=== PATIENT | female | born 1990 | race Two or more races ===

== ENCOUNTER → 2024-09-26 | Outpatient (REF) | payer OTHER ==
[~2024-09-26] MED LIST: LEVO100T5 PO; MULTTAB20 PO; UNIT1TAB PO
== END ==
LOC: M SFHCWAGY 14:51
PROVIDERS: ATTEND Specialist
DX: Z34.83 Encounter for supervision of other normal pregnancy, third trimester (principal)

== ENCOUNTER → 2024-10-01 | Outpatient (CLI) | payer OTHER ==
[2024-10-01 17:30] LABS: PLATELET COUNT, AUTOMATED 268 10^3/uL (150-450)
[2024-10-01 17:57] LABS: TOTAL PROTEIN,RANDOM URINE 12.2 MG/DL (0.0-14.0)
[2024-10-01 18:01] LABS: LDH LACTATE DEHYDROGENASE 171 U/L (120-246)
[2024-10-01 18:02] LABS: ALT/SGPT 14 U/L (7.0-40); AST/SGOT 19 U/L (<34); CREATININE FOR GFR 0.70 MG/DL (0.55-1.30); GLOMERULAR FILTRATION RATE > 90.0 (>60)
== END ==
LOC: M PLALAB 14:37
PROVIDERS: ATTEND Advanced Practice Midwife
DX: O16.3 Unspecified maternal hypertension, third trimester (principal)

== ENCOUNTER → 2024-10-05 | Outpatient (CLI) | payer OTHER | LOC: M WHC 10:25 | PROVIDERS: ATTEND Obstetrics & Gynecology | DX: Z36.2 Encounter for other antenatal screening follow-up (principal); Z87.59 Personal history of other complications of pregnancy, childbirth and the puerperium ==

== ENCOUNTER 2024-10-15 07:14 | Inpatient (IN) | payer OTHER ==
[~2024-10-15] VITALS: Ht 162.6 cm; Wt 94.4 kg
[2024-10-15] VITALS (8 sets, daily range): BP systolic 106–128; BP diastolic 57–75; TEMP 97.7; O2SAT 95–98
[2024-10-15] MEDS ORDERED: ACETAMINOPHEN 1000MG/100ML IV BAG As Ordered ONE (07:36)
[2024-10-15] MEDS ORDERED: MORPHINE PRES-FREE INJ 10 MG/10 ML VIAL As Ordered ONE (07:36)
[2024-10-15] MEDS ORDERED: dexAMETHasone 4 MG/ML 1 ML VIAL As Ordered ONE (07:36)
[2024-10-15] MEDS ORDERED: OXYTOCIN 30UNITS IN 0.9% NaCl 500ML IV BAG As Ordered ONE (07:36)
[2024-10-15] MEDS ORDERED: KETOROLAC 30 MG/ML 1 ML VIAL As Ordered ONE (07:36)
[2024-10-15] MEDS ORDERED: ONDANSETRON 4MG 2ML VIAL As Ordered ONE (07:36)
[2024-10-15] MEDS ORDERED: ACET-907 PO (07:39)
[2024-10-15 08:23] LABS: PLATELET COUNT, AUTOMATED 252 10^3/uL (150-450)
[2024-10-15] MEDS: BICITRA 30 ML SOLN UDC PO ONE (08:53)
[2024-10-15] MEDS: ceFAZolin SODIUM 2 GM in DEXTROSE 5% (D5W) ADV/MINI-BAG 50 ML IV ONE (08:53)
[2024-10-15] MEDS: LACTATED RINGER'S 1000 ML IV STA (08:53)
[2024-10-15] MEDS: LR 1,000 ML IV SCH ×2 (08:53→10:45)
[2024-10-15 09:17] LABS: HIV 1&2 SCREEN NEGATIVE (NEGATIVE)
[2024-10-15 09:25] LABS: HEPATITIS C VIRUS ABY INDEX < 0.02 INDEX (<0.8)
[2024-10-15] MEDS ORDERED: GLYCOPYRROLATE INJ 0.2 MG/ML 2 ML VIAL As Ordered ONE (09:56)
[2024-10-15] MEDS ORDERED: PHENYLephrine 500MCG 5ML (100MCG/ML) SYRINGE As Ordered ONE (10:15)
[2024-10-15] MEDS ORDERED: OXYTOCIN INJ 10UNITS/ML 1ML VIAL As Ordered ONE (10:34)
[2024-10-15] MEDS ORDERED: MORPHINE 4 MG/ML 1 ML VIAL IV PRN (10:45)
[2024-10-15] MEDS ORDERED: ONDANSETRON 4MG 2ML VIAL IV PRN ×2 (10:45→11:20)
[2024-10-15] MEDS ORDERED: PERCOCET 5MG/325MG TAB PO PRN ×2 (10:45)
[2024-10-15] MEDS ORDERED: METHYLERGONOVINE MALEATE 0.2 MG/ML 1 ML VIAL IM PRN (10:45)
[2024-10-15] MEDS ORDERED: CALCIUM CARBONATE 500 MG CHEW U/D PO PRN (10:45)
[2024-10-15] MEDS ORDERED: ANUSOL HC CREAM 30 GM TOP PRN (10:45)
[2024-10-15] MEDS ORDERED: RHOGAM 300MCG (1500IU) INJ IM SCH (10:45)
[2024-10-15] MEDS ORDERED: IBUP80TA PO (10:51)
[2024-10-15] MEDS ORDERED: PERCOCET PO (10:51)
[2024-10-15] MEDS ORDERED: COLA100C5 PO (10:51)
[2024-10-15] MEDS ORDERED: diphenhydrAMINE 50 MG/ML VIAL IV PRN (11:20)
[2024-10-15] MEDS: SLF 3 ML SYR IV SCH (11:20)
[2024-10-15] MEDS ORDERED: **NOTE PATIENT COMMENT** MISC XX SCH (11:20)
[2024-10-15] MEDS ORDERED: NALOXONE INJ 0.4 MG/1 ML VIAL IV PRN ×2 (11:20)
[2024-10-15] MEDS: OXYTOCIN DRIP 30 UNITS in IV 1 EA IV SCH (11:55)
[2024-10-15] MEDS: PROMETHAZINE 25MG/ML 1ML VIAL IV ONE (14:06)
[2024-10-15] MEDS: KETOROLAC 30 MG/ML 1 ML VIAL IV SCH (16:13)
[2024-10-15] MEDS: DOCUSATE SODIUM 100 MG CAPSULE PO SCH (21:26)
[2024-10-16 02:00] VITALS: BP 109/58; O2SAT 98
[2024-10-16 06:00] VITALS: BP 105/68; O2SAT 99
[2024-10-16] MEDS: LEVOTHYROXINE 100 MCG TABLET (0.1 MG) PO SCH (06:00)
[2024-10-16] MEDS: PRENATAL VITAMINS CHEWABLE TABLET PO SCH (07:41)
[2024-10-16] MEDS: FERROUS SULFATE 325 MG TAB PO SCH (07:41)
[2024-10-16 08:23] LABS: PLATELET COUNT, AUTOMATED 246 10^3/uL (150-450)
[2024-10-16] MEDS: ACETAMINOPHEN 500 MG TAB PO PRN (08:39)
[2024-10-16 10:10] VITALS: BP 116/56; O2SAT 96
[2024-10-16] MEDS: IBUPROFEN 800 MG TAB PO SCH (12:12)
[2024-10-16 14:00] VITALS: BP 118/62; O2SAT 98
[2024-10-16 18:00] VITALS: BP 115/55; O2SAT 99
[2024-10-16 22:00] VITALS: BP 138/70; O2SAT 97
[2024-10-17 02:00] VITALS: BP 135/84; O2SAT 99
[2024-10-17 05:46] VITALS: BP 126/61; O2SAT 97
[2024-10-17] MEDS: SIMETHICONE 80MG CHEW TAB PO PRN (08:23)
[2024-10-17] MEDS: MEASLES,MUMPS,RUBELLA VACCINE INJ (MMR-II) SC.IMMUN ONE (09:16)
[2024-10-17 10:14] VITALS: BP 129/72; O2SAT 97
[2024-10-18] MEDS ORDERED: LEVOTHYROXINE 100 MCG TABLET (0.1 MG) PO SCH (06:00)
== END 2024-10-17 13:15 | disposition home or self-care (01) | DRG 773 ==
LOC: M LDI 07:14 → EDUNIT# 09:30 → M OBS 12:40
PROVIDERS: ADMIT Obstetrics & Gynecology; ATTEND Obstetrics & Gynecology
PROC: 10D00Z1 Extraction of Products of Conception, Low, Open Approach (ICD-10-PCS; principal; 2024-10-15 09:30)
DX: O99.214 Obesity complicating childbirth (principal); Z3A.39 39 weeks gestation of pregnancy; Z37.0 Single live birth; O99.284 Endocrine, nutritional and metabolic diseases complicating childbirth; E66.9 Obesity, unspecified; E03.9 Hypothyroidism, unspecified